=== PATIENT | female | born 1935 | race Caucasian/White ===

== ENCOUNTER 2017-01-05 12:30 | Day surgery (SDC) | payer OTHER ==
[2017-01-05] MEDS ORDERED: LIDOCAINE 1% 300 MG/30 ML SDV SC ONE (13:00)
--- NOTE | 2017-01-05 16:04 | SUROPNOTE ---
АННА Operative Report - Surgery PROCEDURE: LINQ IMPLANT INDICATION: PALPITATIONS WITH CONCERNS ABOUT PAF DETAILS: After consent was obtained, the patient was prepped and draped in usual sterile fashion. No sedation was used for this procedure. Local anesthetic with lidocaine was placed to the left third intercostal space. A #10 blade was used for the initial incision, followed by the provided blade for appropriate width and breath. The rail delivery system was then used to implant the device without difficulty. [employer] LINQ SN: [id number] Three cierra were used to close the incision, and a 4X4 dressing was place over the top with Tegaderm. Interrogation of the device with excellent waveforms noted. Follow up with cardiology in the outpatient setting in one week is scheduled. No complications were appreciated.
== END 2017-01-05 14:55 | disposition home or self-care (01) ==
LOC: FCATH 12:30
PROVIDERS: ATTEND Internal Medicine Cardiovascular Disease
PROC: 0JH602Z Insertion of Monitoring Device into Chest Subcutaneous Tissue and Fascia, Open Approach (ICD-10-PCS; principal; 2017-01-05)
DX: I48.91 Unspecified atrial fibrillation (principal); I10 Essential (primary) hypertension; E78.5 Hyperlipidemia, unspecified; E03.9 Hypothyroidism, unspecified; D05.91 Unspecified type of carcinoma in situ of right breast; F32.9 Major depressive disorder, single episode, unspecified; Z85.820 Personal history of malignant melanoma of skin
CPT/HCPCS: C1764

== ENCOUNTER 2017-11-16 05:48 | Day surgery (SDC) | payer OTHER ==
[2017-11-16] MEDS ORDERED: ACETAMINOPHEN 500 MG TAB PO ONE (06:15)
[2017-11-16] MEDS ORDERED: LIDOCAINE 1% 2 ML INJ ID PRN (06:15)
[2017-11-16] MEDS ORDERED: GABAPENTIN 300 MG CAP PO ONE (06:15)
[2017-11-16] MEDS ORDERED: LR 1,000 ML IV ONE (06:15)
[2017-11-16] MEDS ORDERED: ceFAZolin 2 GM/SWFI 2 GM/20 ML SYR IVP ONE (06:15)
--- NOTE | 2017-11-16 06:32 | PDHPUP ---
History & Physical Update H&P update statement: This history and physical update is based on an assessment of the patient which was completed after admission or registration (within 24 hours), but prior to the surgery/procedure. H&P update: H&P reviewed & patient examined, no change in patient's condition since H&P completed
[2017-11-16] MEDS ORDERED: EPINEPHrine 1 MG/ML INJ ONE (06:43)
[2017-11-16] MEDS ORDERED: BUPIVACAINE 0.25% 30 ML SDV ONE (06:43)
[2017-11-16] MEDS ORDERED: DEPO METHYLPREDNISOLONE 40 MG/ML SDV ONE (06:43)
[2017-11-16] MEDS ORDERED: THROMBIN (BOVINE) 5,000 UNIT VIAL TP ONE (06:44)
[2017-11-16] MEDS ORDERED: BACITRACIN 50,000 UNITS/10 ML SYR IRR ONE (06:44)
[2017-11-16] MEDS ORDERED: CHLORHEXIDINE GLUC HIBICLENS 118 ML BTL TP ONE (06:44)
--- NOTE | 2017-11-16 06:56 | PDANEPAE ---
ANE Past Medical History - Cardiovascular History Hx Hypertension: Yes Hx Arrhythmias: No Hx Chest Pain: No Hx Coronary Artery / Peripheral Vascular Disease: No Hx CHF / Valvular Disease: No Hx Palpitations: No - Pulmonary History Hx COPD: No Hx Asthma/Reactive Airway Disease: No Hx Recent Upper Respiratory Infection: No Hx Oxygen in Use at Home: No Hx Sleep Apnea: No Sleep Apnea Screening Result - Last Documented: Negative - Neurologic History Hx Cerebrovascular Accident: No Hx Seizures: No Hx Dementia: No - Endocrine History Hx Diabetes: No - Renal History Hx Renal Disorders: No - Liver History Hx Hepatic Disorders: No - Neurological & Psychiatric Hx Hx Neurological and Psychiatric Disorders: No - Cancer History Cancer History Comment: BREAST CA, MELANOMA - Congenital Disorder History Hx Congenital Disorders: No - GI History Hx Gastrointestinal Disorders: No Gastrointestinal History Comment: OCCASIONALLY TAKES PEPCID - Other Health History Other Health History: BILAT CATARACT. DENTAL IMPLANTS - Chronic Pain History Chronic Pain: No - Surgical History Prior Surgeries: 2014 HAND MELANOMA ANE Review of Systems Review of Systems: - Exercise capacity METS (RN): 4 METS ANE Patient History - Allergies Allergies/Adverse Reactions: No Known Allergies Allergy (Verified 11/14/17 14:17) - Home Medications Home Medications: Aspirin 01/05/17 [Last Taken 1 Week Ago ~11/09/17] Calcium 600 + Vit D 400 Softgl 01/05/17 [Last Taken 1 Week Ago ~11/09/17] Levothyroxine 01/05/17 [Last Taken 1 Day Ago ~11/15/17] Lisinopril 01/05/17 [Last Taken 1 Day Ago ~11/15/17] Ocuvite with Lutein Tablet 01/05/17 [Last Taken 1 Week Ago ~11/09/17] SIMVASTATIN 01/05/17 [Last Taken 1 Day Ago ~11/15/17] Vitamin D3 01/05/17 [Last Taken 1 Week Ago ~11/09/17] - NPO status NPO Since - Liquids (Date): 11/15/17 NPO Since - Liquids (Time): 21:00 NPO Since - Solids (Date): 11/15/17 NPO Since - Solids (Time): 20:00 - Smoking Hx Smoking Status: Never smoked - Family Anes Hx Family Hx Anesthesia Complications: NONE ANE Labs/Vital Signs - Vital Signs Blood Pressure: 175/99 Heart Rate: 82 Respiratory Rate: 18 O2 Sat (%): 94 Height: 154.94 cm Weight: 55.338 kg ANE Physical Exam - Airway Mallampati Score: Class 2 - ASA Status ASA Status: II ANE Anesthesia Plan Anesthesia Plan: general endotracheal anesthesia
[2017-11-16] MEDS ORDERED: PROPOFOL 200 MG/20 ML VIAL ONE (07:08)
[2017-11-16] MEDS ORDERED: fentaNYL 100 MCG/2 ML INJ ONE (07:08)
[2017-11-16] MEDS ORDERED: PROPOFOL/EMULSION 500 MG/50 ML BOTTLE IV ONE (07:09)
[2017-11-16] MEDS ORDERED: ONDANSETRON 4 MG/2 ML VIAL ONE ×2 (07:10→10:07)
[2017-11-16] MEDS ORDERED: ROCURONIUM 50 MG/5 ML VIAL ONE (07:10)
[2017-11-16] MEDS ORDERED: METOCLOPRAMIDE 10 MG/2 ML VIAL ONE (07:10)
[2017-11-16] MEDS ORDERED: PHENYLEPHRINE HCL 100 MCG/ML SYR ONE (09:05)
[2017-11-16] MEDS ORDERED: fentaNYL 100 MCG/2 ML INJ IVP PRN (09:23)
[2017-11-16] MEDS ORDERED: DEXAMETHASONE 4 MG/ML VIAL IVP PRN (09:23)
[2017-11-16] MEDS ORDERED: LR 500 ML IV PRN (09:23)
[2017-11-16] MEDS ORDERED: NALOXONE HCL 0.4 MG/ML INJ IVP PRN (09:23)
--- NOTE | 2017-11-16 09:24 | POSTANESTH ---
Post Anesthetic Evaluation Cardiovascular Status: Similar to Pre-Op Cond Respiratory Status: Normal, Stable Level of Consciousness/Mental Status: Can Participate in Eval Pain Control: Adequate, Prn Tx Ordered Nausea/Vomiting Control: Adequate, Prn Tx Ordered Complications Possibly Related to Anesthesia: None Noted
--- NOTE | 2017-11-16 09:37 | SOAPPROG ---
SOAP Progress Note Assessment/Plan: Post Op Visit: S: Awake and alert. NAD. Pt with some expected lower back pain O: AFVSS/PERRLA/EOMI no droop CN 2-12 grossly intact +lt touch 5/5 BUE/BLE = CDI A/P: 82 yo female that is s/p left L5/S1 LRD -orders in place -call with any questions or concerns -pt seen by Dr Valles as well -dc once criteria met -pt and understand and agree 11/16/17 09:33 Objective: Vital Signs Temp Pulse Resp BP Pulse Ox 37.1 C 82 18 175/99 H 94 11/16/17 06:20 11/16/17 06:56 11/16/17 06:56 11/16/17 06:56 11/16/17 06:56 ICD10 Worksheet Patient Problems: Problems Problem Status Onset Lumbar radicular pain Acute Lumbar stenosis Acute - ICD10 Problem Qualifiers (1) Lumbar stenosis (2) Lumbar radicular pain
--- NOTE | 2017-11-16 09:39 | GOP ---
[f rep st] OPERATIVE REPORT DATE OF OPERATION: 11/16/2017 SURGEON: Deidra Valles MD NEUROSURGEON: Deidra Valles MD. HEAT TREATMENT TECHNICIAN: Teddy Ibrahim PA-C. PREOPERATIVE DIAGNOSIS: Lumbar spondylosis, left S1 radiculopathy, left L5-S1 lateral recess stenosi s with facet arthropathy. POSTOPERATIVE DIAGNOSIS: Lumbar spondylosis, left S1 radiculopathy, left L5-S1 lateral recess stenos is with facet arthropathy. PROCEDURE PERFORMED: Left L5-S1 hemilaminotomy with a medial facetectomy and a left lateral recess, decompression of the left S1 nerve root. FINDINGS: ESTIMATED BLOOD LOSS: 10 cc. INDICATIONS: The patient is an 82-year-old female who has been having problems with the left leg for some period of time and she is completely miserable. MRI demonstrated facet arthropathy at L5-S1 an d the slightest amount of spondylolisthesis beginning at that level that was degenerative in nature. There was hypertrophy of the left L5-S1 facet and the superior articulating process of the sacrum wa s impinging on the left S1 nerve root as it traversed the disk space. There was no need for instrume ntation or fusion in this case. In my opinion, she had some left lateral recess stenosis even at L4- 5, but nothing that was critical or could account for posterior leg symptoms in an S1 distribution. I suggested a minimally invasive outpatient left lateral recess decompression at L5-S1. She understo od there was a risk that the surgery would fail to give her any relief. She knew that there was a ri sk of infection, nerve injury, spinal fluid leak, and possible need for future spine surgery. She wa nted to proceed despite these risks. DESCRIPTION OF PROCEDURE: Patient was taken to the operating room, placed in a supine position. Gen eral anesthesia was begun. She was flipped prone onto the Vipin frame. Care was taken to pad all p oints of contact. Her back was sterilely prepped and draped in the usual sterile surgical fashion. A localizing x-ray was taken. We made a midline incision. It was 18 mm in length. The subcutaneous tissue was dissected using Bovie cautery down through the fascia, and a subperiosteal dissection was made down the left L5-S1 lamina. A localizing x-ray was taken. Self-retaining retractors were plac ed. The microscope was introduced. We drilled a left L5-S1 hemilaminotomy with a medial facetectomy. We opened ligamentum flavum and de compressed from the mid S1 pedicle up along the S1 nerve root into the lateral recess above the L5-S1 disk. The superior articulating process of the sacrum was hypertrophic and impinging directly on th e S1 nerve root as could be seen on the MRI. There was really remarkable stenosis. We continued fol lowing this rostrally until we removed all of this medial aspect of the S1 superior articulating proc ess. The L5-S1 facet was intact. We decompressed the left lateral recess of the spinal canal. No d iskectomy was performed. [place] [id number] on the left side at L5-S1. We irrigated with antibiotic saline solution, placed a little Depo-Medrol over the left S1 nerve root, and closed the incision in multiple layers using Vicryl sutures. Steri-Strips were applied. The patient was r eversed from anesthesia. There were no complications. COMPLICATIONS: None. /[id number]/MODL
[2017-11-16] MEDS ORDERED: PROMETHAZINE HCL 25 MG/ML INJ ONE (10:30)
[2017-11-16] MEDS ORDERED: ONDANSETRON 4 MG/2 ML VIAL IVP ONE (10:45)
[2017-11-16] MEDS ORDERED: PROMETHAZINE HCL 25 MG/ML INJ IVP ONE (10:45)
[2017-11-16 12:22] VITALS: BP 139/59
== END 2017-11-16 12:15 | disposition home or self-care (01) ==
LOC: FSGY 05:48
PROVIDERS: ATTEND Neurological Surgery
DX: M48.07 Spinal stenosis, lumbosacral region (principal); M51.36 Other intervertebral disc degeneration, lumbar region; M54.16 Radiculopathy, lumbar region; Z85.3 Personal history of malignant neoplasm of breast; Z85.820 Personal history of malignant melanoma of skin
CPT/HCPCS: J0171; J0690; J1030; J2370; J2405; J2550; J2704; J2765; J3010